=== PATIENT | male | born 1960 | race Caucasian/White ===

== ENCOUNTER 2016-12-02 18:45 | Inpatient (IN) | payer OTHER ==
[~2016-12-02] VITALS: Ht 175.3 cm; Wt 75.7 kg
[2016-12-02] MEDS ORDERED: IV NORMAL SALINE 1000ML BAG 1,000 ML IV SCH (18:59)
[2016-12-02] MEDS ORDERED: ONDANSETRON PF 4 MG/2 ML VIAL. IV ONE (19:00)
[2016-12-02] MEDS ORDERED: MORPHINE SULFATE 4 MG/ML DISP.SYRIN. IV/SQ PRN (19:00)
[2016-12-02] MEDS ORDERED: IBUP-1027 PO (19:01)
[2016-12-02] MEDS ORDERED: ROPI1TAB PO (19:01)
[2016-12-02] MEDS ORDERED: LISI30TA4 PO (19:01)
[2016-12-02] MEDS ORDERED: CARB1TAB5 PO ×2 (19:01)
[2016-12-02] MEDS ORDERED: NABU500T PO (19:01)
[2016-12-02] MEDS ORDERED: HYDR25TA9 PO (19:01)
[2016-12-02] MEDS ORDERED: AMAN100T PO (19:01)
[2016-12-02 19:11] LABS: BASO % 1 % (0-3); EOS % 4 % (0-3); HEMATOCRIT 34.7 % (39.0-53.0); HEMOGLOBIN 11.9 g/dL (13.0-17.5); LYMPH # 1.1 x10^3/uL (1.0-4.8); LYMPH % 16 % (24-48); MEAN CORPUSCULAR HEMOGLOBIN 28 pg (25-35); MEAN CORPUSCULAR HGB CONC 34 g/dL (31-37); MEAN CORPUSCULAR VOLUME 82 fL (79-100); MONO % 7 % (0-9); NEUT % 72 % (31-73); PLATELET COUNT 165 x10^3/uL (140-400); RED BLOOD COUNT 4.21 x10^6/uL (4.30-5.70); RED CELL DISTRIBUTION WIDTH 15.6 % (11.5-14.5); WHITE BLOOD COUNT 6.8 x10^3/uL (4.0-11.0)
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
[2016-12-02 19:25] LABS: CALCIUM 8.9 mg/dL (8.5-10.1); CREATININE 1.1 mg/dL (0.7-1.3)
[2016-12-02 19:30] LABS: ALBUMIN 4.3 g/dL (3.4-5.0); ALBUMIN/GLOBULIN RATIO 1.2 (1.0-1.7); TOTAL BILIRUBIN 0.6 mg/dL (0.2-1.0); TOTAL PROTEIN 7.9 g/dL (6.4-8.2)
[2016-12-02 20:40] VITALS: BP 136/82
[2016-12-02] MEDS ORDERED: ACETAMINOPHEN 325 MG TABLET. PO PRN (20:45)
[2016-12-02] MEDS ORDERED: MORPHINE SULFATE 4 MG/ML DISP.SYRIN. IV PRN (20:45)
[2016-12-02] MEDS ORDERED: ONDANSETRON PF 4 MG/2 ML VIAL. IV PRN ×2 (20:45→21:31)
[2016-12-02] MEDS: IV NORMAL SALINE 1000ML BAG 1,000 ML IV SCH (21:35)
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
[2016-12-02 22:11] LABS: INR 1.1 (0.8-1.1); PROTHROMBIN TIME PATIENT 13.8 SEC (11.7-14.0)
[2016-12-02] MEDS: AMANTADINE HCL 100 MG CAPSULE PO SCH (22:11)
[2016-12-02] MEDS: CARBIDOPA/LEVODOPA CR 25/100MG TABLET.SA. PO SCH (22:11)
[2016-12-02] MEDS: rOPINIRole 1 MG TABLET. PO SCH (22:17)
[2016-12-02 23:34] VITALS: BP 126/74
[2016-12-03 03:00] VITALS: BP 122/70
[2016-12-03 05:23] LABS: BASO % 1 % (0-3); EOS % 4 % (0-3); HEMATOCRIT 34.1 % (39.0-53.0); HEMOGLOBIN 11.8 g/dL (13.0-17.5); LYMPH # 1.3 x10^3/uL (1.0-4.8); LYMPH % 18 % (24-48); MEAN CORPUSCULAR HEMOGLOBIN 28 pg (25-35); MEAN CORPUSCULAR HGB CONC 35 g/dL (31-37); MEAN CORPUSCULAR VOLUME 82 fL (79-100); MONO % 9 % (0-9); NEUT % 69 % (31-73); PLATELET COUNT 151 x10^3/uL (140-400); RED BLOOD COUNT 4.14 x10^6/uL (4.30-5.70); RED CELL DISTRIBUTION WIDTH 15.7 % (11.5-14.5); WHITE BLOOD COUNT 7.2 x10^3/uL (4.0-11.0)
[2016-12-03 05:50] LABS: CALCIUM 8.6 mg/dL (8.5-10.1); CREATININE 1.1 mg/dL (0.7-1.3); POTASSIUM 4.6 mmol/L (3.5-5.1)
[2016-12-03] MEDS: IV NORMAL SALINE 1000ML BAG 1,000 ML IV SCH ×2 (06:36→16:38)
[2016-12-03 07:00] VITALS: BP 140/85
[2016-12-03] MEDS: AMANTADINE HCL 100 MG CAPSULE PO SCH ×2 (08:01→16:51)
[2016-12-03] MEDS: rOPINIRole 1 MG TABLET. PO SCH ×3 (08:03→16:50)
[2016-12-03] MEDS: CARBIDOPA/LEVODOPA CR 25/100MG TABLET.SA. PO SCH ×4 (08:03→20:55)
[2016-12-03] MEDS: LISINOPRIL 10 MG TABLET PO SCH (08:08)
[2016-12-03] MEDS: MELOXICAM 7.5 MG TABLET PO SCH (08:08)
[2016-12-03] MEDS: hydroCHLOROthiazide 25 MG TABLET PO SCH (08:08)
--- NOTE | 2016-12-03 08:14 | RAD ---
Indication fall. Pain. An AP view of the pelvis was obtained as well as targeted AP and lateral imaging to the left hip. There is a mildly impacted, traumatic, fracture of the left femoral neck. No additional bony finding is seen. IMPRESSION: Fractured left femoral neck.
[2016-12-03 11:00] VITALS: BP 120/76
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
[2016-12-03 15:00] VITALS: BP 120/65
--- NOTE | 2016-12-03 17:25 | PDOC ---
PROGRESS NOTES Chief Complaint Chief Complaint L hip fx ASSESSMENT AND PLAN: 1. L hip fx: plan for ORIF in AM 2. Pain control: adequate on current regimen 3. Parkinson's: cont home amantadine 4. RLS: on ropinirole 5. Prophylaxis: hold lovenox til post surg History of Present Illness History of Present Illness no pain at rest. no other c/o Vitals Vitals Vital Signs Date Time Temp Pulse Resp B/P (MAP) Pulse Ox O2 Delivery O2 Flow Rate FiO2 12/03/16 11:00 97.5 73 18 120/76 (91) 96 Room Air 97.5 Physical Exam General: Alert, Oriented X3, Cooperative, No acute distress Abdomen: Normal bowel sounds, Soft, No tenderness, No hepatosplenomegaly, No masses Skin: No rashes, No breakdown, No significant lesion Labs LABS Laboratory Tests Test 12/02/16 18:55 12/03/16 05:05 White Blood Count 6.8 x10^3/uL (4.0-11.0) 7.2 x10^3/uL (4.0-11.0) Red Blood Count 4.21 x10^6/uL (4.30-5.70) 4.14 x10^6/uL (4.30-5.70) Hemoglobin 11.9 g/dL (13.0-17.5) 11.8 g/dL (13.0-17.5) Hematocrit 34.7 % (39.0-53.0) 34.1 % (39.0-53.0) Mean Corpuscular Volume 82 fL (79-100) 82 fL (79-100) Mean Corpuscular Hemoglobin 28 pg (25-35) 28 pg (25-35) Mean Corpuscular Hemoglobin Concent 34 g/dL (31-37) 35 g/dL (31-37) Red Cell Distribution Width 15.6 % (11.5-14.5) 15.7 % (11.5-14.5) Platelet Count 165 x10^3/uL (140-400) 151 x10^3/uL (140-400) Neutrophils (%) (Auto) 72 % (31-73) 69 % (31-73) Lymphocytes (%) (Auto) 16 % (24-48) 18 % (24-48) Monocytes (%) (Auto) 7 % (0-9) 9 % (0-9) Eosinophils (%) (Auto) 4 % (0-3) 4 % (0-3) Basophils (%) (Auto) 1 % (0-3) 1 % (0-3) Neutrophils # (Auto) 4.9 x10^3uL (1.8-7.7) 4.9 x10^3uL (1.8-7.7) Lymphocytes # (Auto) 1.1 x10^3/uL (1.0-4.8) 1.3 x10^3/uL (1.0-4.8) Monocytes # (Auto) 0.5 x10^3/uL (0.0-1.1) 0.6 x10^3/uL (0.0-1.1) Eosinophils # (Auto) 0.3 x10^3/uL (0.0-0.7) 0.3 x10^3/uL (0.0-0.7) Basophils # (Auto) 0.0 x10^3/uL (0.0-0.2) 0.0 x10^3/uL (0.0-0.2) Prothrombin Time 13.8 SEC (11.7-14.0) Prothromb Time International Ratio 1.1 (0.8-1.1) Sodium Level 140 mmol/L (136-145) 138 mmol/L (136-145) Potassium Level 4.0 mmol/L (3.5-5.1) 4.6 mmol/L (3.5-5.1) Chloride Level 104 mmol/L (98-107) 105 mmol/L (98-107) Carbon Dioxide Level 27 mmol/L (21-32) 24 mmol/L (21-32) Anion Gap 9 (6-14) 9 (6-14) Blood Urea Nitrogen 26 mg/dL (8-26) 22 mg/dL (8-26) Creatinine 1.1 mg/dL (0.7-1.3) 1.1 mg/dL (0.7-1.3) Estimated GFR (Cockcroft-Gault) 69.0 69.0 BUN/Creatinine Ratio 24 (6-20) Glucose Level 165 mg/dL (70-99) 96 mg/dL (70-99) Calcium Level 8.9 mg/dL (8.5-10.1) 8.6 mg/dL (8.5-10.1) Total Bilirubin 0.6 mg/dL (0.2-1.0) Aspartate Amino Transf (AST/SGOT) 19 U/L (15-37) Alanine Aminotransferase (ALT/SGPT) 11 U/L (16-63) Alkaline Phosphatase 74 U/L (46-116) Total Protein 7.9 g/dL (6.4-8.2) Albumin 4.3 g/dL (3.4-5.0) 4.2 g/dL (3.4-5.0) Albumin/Globulin Ratio 1.2 (1.0-1.7) OTILIA CORLEY MD Dec 03, 2016 17:25
[2016-12-03] MEDS ORDERED: MORPHINE SULFATE 2 MG/ML DISP.SYRIN. IV PRN (17:30)
[2016-12-03 19:10] VITALS: BP 109/67
[2016-12-03 23:03] VITALS: BP 121/73
[2016-12-04] VITALS (9 sets, daily range): BP systolic 106–143; BP diastolic 60–94
[2016-12-04] MEDS ORDERED: IV RINGERS,LACTATED 1000ML 1,000 ML IV SCH (07:00)
[2016-12-04] MEDS ORDERED: ONDANSETRON PF 4 MG/2 ML VIAL. IV PRN ×2 (07:00→12:15)
[2016-12-04] MEDS ORDERED: fentaNYL PF VIAL 100 MCG/2 ML VIAL IV PRN ×3 (07:00→12:15)
[2016-12-04] MEDS ORDERED: HYDROmorphone 2 MG/ML VIAL IV PRN ×2 (07:00→12:15)
[2016-12-04] MEDS ORDERED: PROCHLORPERAZINE 10 MG/2 ML VIAL. IV PRN (07:00)
[2016-12-04] MEDS ORDERED: LIDOCAINE 1% 1 ML SYRINGE. ID PRN (07:00)
--- NOTE | 2016-12-04 07:58 | PDOC ---
ORTHO PROGRESS NOTES Subjective no acute events overnight. No nausea, vomiting, numbness, tingling, chest pain, shortness of breath, calf pain, or constipation. NPO for surgery today. Vitals Vital Signs Date Time Temp Pulse Resp B/P (MAP) Pulse Ox O2 Delivery O2 Flow Rate FiO2 12/04/16 07:00 94.5 88 18 142/94 (110) 97 Room Air 94.5 Labs Laboratory Tests Test 12/02/16 18:55 12/03/16 05:05 12/03/16 06:14 White Blood Count 6.8 x10^3/uL (4.0-11.0) 7.2 x10^3/uL (4.0-11.0) Red Blood Count 4.21 x10^6/uL (4.30-5.70) 4.14 x10^6/uL (4.30-5.70) Hemoglobin 11.9 g/dL (13.0-17.5) 11.8 g/dL (13.0-17.5) Hematocrit 34.7 % (39.0-53.0) 34.1 % (39.0-53.0) Mean Corpuscular Volume 82 fL (79-100) 82 fL (79-100) Mean Corpuscular Hemoglobin 28 pg (25-35) 28 pg (25-35) Mean Corpuscular Hemoglobin Concent 34 g/dL (31-37) 35 g/dL (31-37) Red Cell Distribution Width 15.6 % (11.5-14.5) 15.7 % (11.5-14.5) Platelet Count 165 x10^3/uL (140-400) 151 x10^3/uL (140-400) Neutrophils (%) (Auto) 72 % (31-73) 69 % (31-73) Lymphocytes (%) (Auto) 16 % (24-48) 18 % (24-48) Monocytes (%) (Auto) 7 % (0-9) 9 % (0-9) Eosinophils (%) (Auto) 4 % (0-3) 4 % (0-3) Basophils (%) (Auto) 1 % (0-3) 1 % (0-3) Neutrophils # (Auto) 4.9 x10^3uL (1.8-7.7) 4.9 x10^3uL (1.8-7.7) Lymphocytes # (Auto) 1.1 x10^3/uL (1.0-4.8) 1.3 x10^3/uL (1.0-4.8) Monocytes # (Auto) 0.5 x10^3/uL (0.0-1.1) 0.6 x10^3/uL (0.0-1.1) Eosinophils # (Auto) 0.3 x10^3/uL (0.0-0.7) 0.3 x10^3/uL (0.0-0.7) Basophils # (Auto) 0.0 x10^3/uL (0.0-0.2) 0.0 x10^3/uL (0.0-0.2) Prothrombin Time 13.8 SEC (11.7-14.0) Prothromb Time International Ratio 1.1 (0.8-1.1) Sodium Level 140 mmol/L (136-145) 138 mmol/L (136-145) Potassium Level 4.0 mmol/L (3.5-5.1) 4.6 mmol/L (3.5-5.1) Chloride Level 104 mmol/L (98-107) 105 mmol/L (98-107) Carbon Dioxide Level 27 mmol/L (21-32) 24 mmol/L (21-32) Anion Gap 9 (6-14) 9 (6-14) Blood Urea Nitrogen 26 mg/dL (8-26) 22 mg/dL (8-26) Creatinine 1.1 mg/dL (0.7-1.3) 1.1 mg/dL (0.7-1.3) Estimated GFR (Cockcroft-Gault) 69.0 69.0 BUN/Creatinine Ratio 24 (6-20) Glucose Level 165 mg/dL (70-99) 96 mg/dL (70-99) Calcium Level 8.9 mg/dL (8.5-10.1) 8.6 mg/dL (8.5-10.1) Total Bilirubin 0.6 mg/dL (0.2-1.0) Aspartate Amino Transf (AST/SGOT) 19 U/L (15-37) Alanine Aminotransferase (ALT/SGPT) 11 U/L (16-63) Alkaline Phosphatase 74 U/L (46-116) Total Protein 7.9 g/dL (6.4-8.2) Albumin 4.3 g/dL (3.4-5.0) 4.2 g/dL (3.4-5.0) Albumin/Globulin Ratio 1.2 (1.0-1.7) 25-Hydroxy Vitamin D Total 15.0 ng/mL (30.0-100.0) Nasal Screen MRSA (PCR) Negative (Negative) X-Rays Left hip and pelvis reveal a valgus impacted femoral neck fracture Notes LEFT LOWER EXTREMITY: no pain with log roll, leg lengths equal bilaterally, neurovascularly intact distally. Problems: (1) Fracture of femoral neck, left, closed Assessment and Plan plan for closed reduction percutaneous pinning versus open reduction internal fixation today of his left hip The patient is to be non-weight bearing after surgery for 3 months will need physical therapy/ot follow-up vitamin d level and supplement as needed. Problem Qualifiers (1) Fracture of femoral neck, left, closed: Encounter type: initial encounter Qualified Codes: S72.002A - Fracture of unspecified part of neck of left femur, initial encounter for closed fracture SUSAN OLIVARES MD Dec 04, 2016 07:58
[2016-12-04] MEDS: rOPINIRole 1 MG TABLET. PO SCH ×3 (08:00→18:26)
[2016-12-04] MEDS: AMANTADINE HCL 100 MG CAPSULE PO SCH ×2 (08:00→18:26)
[2016-12-04] MEDS: CARBIDOPA/LEVODOPA CR 25/100MG TABLET.SA. PO SCH ×4 (08:00→20:44)
[2016-12-04] MEDS ORDERED: LIDOCAINE 2% PF Vial for OR 5 ML VIAL. ONE (08:47)
[2016-12-04] MEDS ORDERED: PROPOFOL 20 ML IV ONE (08:47)
[2016-12-04] MEDS ORDERED: fentaNYL PF VIAL 100 MCG/2 ML VIAL ONE ×3 (08:47→12:10)
[2016-12-04] MEDS ORDERED: DEXAMETHASONE SOD PHOS 20 MG/5 ML VIAL. ONE (08:47)
[2016-12-04] MEDS ORDERED: ONDANSETRON PF 4 MG/2 ML VIAL. ONE (08:47)
[2016-12-04 09:17] LABS: BASO # 0.1 x10^3/uL (0.0-0.2); BASO % 1 % (0-3); EOS % 3 % (0-3); HEMATOCRIT 37.1 % (39.0-53.0); HEMOGLOBIN 13.2 g/dL (13.0-17.5); LYMPH # 1.1 x10^3/uL (1.0-4.8); LYMPH % 15 % (24-48); MEAN CORPUSCULAR HEMOGLOBIN 28 pg (25-35); MEAN CORPUSCULAR HGB CONC 36 g/dL (31-37); MEAN CORPUSCULAR VOLUME 80 fL (79-100); MONO % 7 % (0-9); NEUT % 74 % (31-73); PLATELET COUNT 182 x10^3/uL (140-400); RED BLOOD COUNT 4.65 x10^6/uL (4.30-5.70); RED CELL DISTRIBUTION WIDTH 15.6 % (11.5-14.5); WHITE BLOOD COUNT 7.4 x10^3/uL (4.0-11.0)
[2016-12-04 09:24] LABS: CALCIUM 9.1 mg/dL (8.5-10.1); POTASSIUM 4.5 mmol/L (3.5-5.1)
[2016-12-04] MEDS: IV RINGERS,LACTATED 1000ML 1,000 ML IV SCH ×2 (09:45→23:05)
[2016-12-04] MEDS ORDERED: ePHEDrine PF IN SALINE 50 MG/5 ML DISP.SYRIN IV ONE (10:31)
[2016-12-04] MEDS ORDERED: BUPIVACAINE-EPI 0.25%-1:200000 50 ML VIAL. ONE (11:13)
--- NOTE | 2016-12-04 11:28 | PDOC ---
BRIEF OPERATIVE NOTE Date: Dec 04, 2016 Pre-Op Diagnosis left valgus impacted femoral neck fracture Post-Op Diagnosis same Procedure Performed crpp left femoral neck fracture Surgeon Susan Olivares MD Anesthesia Type: General Blood Loss 25 Findings valgus impacted femoral neck fracture 4 stainless steel screws 6.5 mm x 80, 85, 100, 95 Complications none SUSAN OLIVARES MD Dec 04, 2016 11:28
[2016-12-04] MEDS: MORPHINE SULFATE 2 MG/ML DISP.SYRIN. IV PRN ×4 (11:52→12:40)
[2016-12-04] MEDS: fentaNYL PF VIAL 100 MCG/2 ML VIAL IV PRN ×4 (12:17→12:55)
--- NOTE | 2016-12-04 12:24 | RAD ---
Indication postop. An AP view of the pelvis was obtained as well as AP and lateral views of the left hip. Note is made of the preop study 2 days previously. 4 screws traverse the previously identified femoral neck fracture. No complication or unexpected finding is seen
--- NOTE | 2016-12-04 13:23 | PDOC ---
PROGRESS NOTES Chief Complaint Chief Complaint L hip fx ASSESSMENT AND PLAN: 1. L hip fx: plan for ORIF today 2. Pain control: adequate on current regimen 3. Parkinson's: cont home amantadine 4. RLS: on ropinirole 5. Prophylaxis: hold lovenox til post surg History of Present Illness History of Present Illness no pain at rest. no other c/o Vitals Vitals Vital Signs Date Time Temp Pulse Resp B/P (MAP) Pulse Ox O2 Delivery O2 Flow Rate FiO2 12/04/16 12:55 16 96 Nasal Cannula 2.0 12/04/16 12:42 88 148/86 12/04/16 12:27 99.0 99.0 Physical Exam General: Alert, Oriented X3, Cooperative, No acute distress Heart: Regular rate Lungs: Clear Abdomen: Normal bowel sounds, Soft, No tenderness, No hepatosplenomegaly, No masses Skin: No rashes, No breakdown, No significant lesion Labs LABS Laboratory Tests Test 12/04/16 09:05 White Blood Count 7.4 x10^3/uL (4.0-11.0) Red Blood Count 4.65 x10^6/uL (4.30-5.70) Hemoglobin 13.2 g/dL (13.0-17.5) Hematocrit 37.1 % (39.0-53.0) Mean Corpuscular Volume 80 fL (79-100) Mean Corpuscular Hemoglobin 28 pg (25-35) Mean Corpuscular Hemoglobin Concent 36 g/dL (31-37) Red Cell Distribution Width 15.6 % (11.5-14.5) Platelet Count 182 x10^3/uL (140-400) Neutrophils (%) (Auto) 74 % (31-73) Lymphocytes (%) (Auto) 15 % (24-48) Monocytes (%) (Auto) 7 % (0-9) Eosinophils (%) (Auto) 3 % (0-3) Basophils (%) (Auto) 1 % (0-3) Neutrophils # (Auto) 5.5 x10^3uL (1.8-7.7) Lymphocytes # (Auto) 1.1 x10^3/uL (1.0-4.8) Monocytes # (Auto) 0.5 x10^3/uL (0.0-1.1) Eosinophils # (Auto) 0.2 x10^3/uL (0.0-0.7) Basophils # (Auto) 0.1 x10^3/uL (0.0-0.2) Sodium Level 139 mmol/L (136-145) Potassium Level 4.5 mmol/L (3.5-5.1) Chloride Level 104 mmol/L (98-107) Carbon Dioxide Level 27 mmol/L (21-32) Anion Gap 8 (6-14) Blood Urea Nitrogen 19 mg/dL (8-26) Creatinine 1.0 mg/dL (0.7-1.3) Estimated GFR (Cockcroft-Gault) 77.0 Glucose Level 110 mg/dL (70-99) Calcium Level 9.1 mg/dL (8.5-10.1) OTILIA CORLEY MD Dec 04, 2016 13:23
[2016-12-04] MEDS: hydroCHLOROthiazide 25 MG TABLET PO SCH (14:14)
[2016-12-04] MEDS: MELOXICAM 7.5 MG TABLET PO SCH (14:14)
[2016-12-04] MEDS: LISINOPRIL 10 MG TABLET PO SCH (14:17)
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
[2016-12-05 03:00] VITALS: BP 143/86
[2016-12-05 05:05] LABS: BASO % 0 % (0-3); EOS % 2 % (0-3); HEMATOCRIT 32.4 % (39.0-53.0); HEMOGLOBIN 11.2 g/dL (13.0-17.5); LYMPH # 1.4 x10^3/uL (1.0-4.8); LYMPH % 16 % (24-48); MEAN CORPUSCULAR HEMOGLOBIN 28 pg (25-35); MEAN CORPUSCULAR HGB CONC 35 g/dL (31-37); MEAN CORPUSCULAR VOLUME 82 fL (79-100); MONO % 9 % (0-9); NEUT % 73 % (31-73); PLATELET COUNT 159 x10^3/uL (140-400); RED BLOOD COUNT 3.97 x10^6/uL (4.30-5.70); RED CELL DISTRIBUTION WIDTH 15.7 % (11.5-14.5)
[2016-12-05 05:26] LABS: CALCIUM 8.4 mg/dL (8.5-10.1)
[2016-12-05 07:00] VITALS: BP 134/92
[2016-12-05] MEDS: MELOXICAM 7.5 MG TABLET PO SCH (08:21)
[2016-12-05] MEDS: rOPINIRole 1 MG TABLET. PO SCH ×3 (08:22→18:24)
[2016-12-05] MEDS: AMANTADINE HCL 100 MG CAPSULE PO SCH ×2 (08:22→18:24)
[2016-12-05] MEDS: hydroCHLOROthiazide 25 MG TABLET PO SCH (08:22)
[2016-12-05] MEDS: oxyCODONE/APAP 5/325 1 TAB TABLET PO PRN (08:23)
[2016-12-05] MEDS: LISINOPRIL 10 MG TABLET PO SCH (08:23)
[2016-12-05] MEDS: CARBIDOPA/LEVODOPA CR 25/100MG TABLET.SA. PO SCH ×4 (08:58→21:39)
--- NOTE | 2016-12-05 11:42 | PDOC ---
PROGRESS NOTES Chief Complaint Chief Complaint L hip fx ASSESSMENT AND PLAN: 1. L hip fx: s/p L hip ORIF on 12/[address] Solano. activity as per Dr Solano 2. Pain control: great on current regimen. 3. Parkinson's: cont home amantadine 4. RLS: on ropinirole 5. Prophylaxis: start lovenox History of Present Illness History of Present Illness no pain at rest. no other c/o Vitals Vitals Vital Signs Date Time Temp Pulse Resp B/P (MAP) Pulse Ox O2 Delivery O2 Flow Rate FiO2 12/05/16 09:56 Room Air 12/05/16 08:23 85 134/92 12/05/16 07:00 97.9 16 98 97.9 12/04/16 12:55 2.0 Physical Exam General: Alert, Oriented X3, Cooperative, No acute distress Heart: Regular rate Lungs: Clear Abdomen: Normal bowel sounds, Soft, No tenderness, No hepatosplenomegaly, No masses Extremities: Other (incison covered) Skin: No rashes, No breakdown, No significant lesion Labs LABS Laboratory Tests Test 12/05/16 04:35 White Blood Count 9.0 x10^3/uL (4.0-11.0) Red Blood Count 3.97 x10^6/uL (4.30-5.70) Hemoglobin 11.2 g/dL (13.0-17.5) Hematocrit 32.4 % (39.0-53.0) Mean Corpuscular Volume 82 fL (79-100) Mean Corpuscular Hemoglobin 28 pg (25-35) Mean Corpuscular Hemoglobin Concent 35 g/dL (31-37) Red Cell Distribution Width 15.7 % (11.5-14.5) Platelet Count 159 x10^3/uL (140-400) Neutrophils (%) (Auto) 73 % (31-73) Lymphocytes (%) (Auto) 16 % (24-48) Monocytes (%) (Auto) 9 % (0-9) Eosinophils (%) (Auto) 2 % (0-3) Basophils (%) (Auto) 0 % (0-3) Neutrophils # (Auto) 6.6 x10^3uL (1.8-7.7) Lymphocytes # (Auto) 1.4 x10^3/uL (1.0-4.8) Monocytes # (Auto) 0.8 x10^3/uL (0.0-1.1) Eosinophils # (Auto) 0.1 x10^3/uL (0.0-0.7) Basophils # (Auto) 0.0 x10^3/uL (0.0-0.2) Sodium Level 141 mmol/L (136-145) Potassium Level 4.0 mmol/L (3.5-5.1) Chloride Level 104 mmol/L (98-107) Carbon Dioxide Level 24 mmol/L (21-32) Anion Gap 13 (6-14) Blood Urea Nitrogen 20 mg/dL (8-26) Creatinine 1.0 mg/dL (0.7-1.3) Estimated GFR (Cockcroft-Gault) 77.0 Glucose Level 100 mg/dL (70-99) Calcium Level 8.4 mg/dL (8.5-10.1) OTILIA CORLEY MD Dec 05, 2016 11:42
[2016-12-05 11:43] VITALS: BP_SYST 117; BP_SYST 184; BP_DIAS 60; BP_DIAS 78
[2016-12-05] MEDS: IV RINGERS,LACTATED 1000ML 1,000 ML IV SCH (12:25)
--- NOTE | 2016-12-05 15:11 | PDOC ---
PROGRESS NOTES Subjective Subjective Problems overnight: no acute issues. pain well controlled. Objective Vital Signs Vital Signs Date Time Temp Pulse Resp B/P (MAP) Pulse Ox O2 Delivery O2 Flow Rate FiO2 12/05/16 11:43 99.1 82 16 117/78 (91) 97 Room Air 99.1 12/04/16 12:55 2.0 Physical Exam LEFT LOWER EXTREMITY: incision clean, dry, and intact. neurovascularly intact distally. Labs Laboratory Tests Test 12/04/16 09:05 12/05/16 04:35 White Blood Count 7.4 x10^3/uL (4.0-11.0) 9.0 x10^3/uL (4.0-11.0) Red Blood Count 4.65 x10^6/uL (4.30-5.70) 3.97 x10^6/uL (4.30-5.70) Hemoglobin 13.2 g/dL (13.0-17.5) 11.2 g/dL (13.0-17.5) Hematocrit 37.1 % (39.0-53.0) 32.4 % (39.0-53.0) Mean Corpuscular Volume 80 fL (79-100) 82 fL (79-100) Mean Corpuscular Hemoglobin 28 pg (25-35) 28 pg (25-35) Mean Corpuscular Hemoglobin Concent 36 g/dL (31-37) 35 g/dL (31-37) Red Cell Distribution Width 15.6 % (11.5-14.5) 15.7 % (11.5-14.5) Platelet Count 182 x10^3/uL (140-400) 159 x10^3/uL (140-400) Neutrophils (%) (Auto) 74 % (31-73) 73 % (31-73) Lymphocytes (%) (Auto) 15 % (24-48) 16 % (24-48) Monocytes (%) (Auto) 7 % (0-9) 9 % (0-9) Eosinophils (%) (Auto) 3 % (0-3) 2 % (0-3) Basophils (%) (Auto) 1 % (0-3) 0 % (0-3) Neutrophils # (Auto) 5.5 x10^3uL (1.8-7.7) 6.6 x10^3uL (1.8-7.7) Lymphocytes # (Auto) 1.1 x10^3/uL (1.0-4.8) 1.4 x10^3/uL (1.0-4.8) Monocytes # (Auto) 0.5 x10^3/uL (0.0-1.1) 0.8 x10^3/uL (0.0-1.1) Eosinophils # (Auto) 0.2 x10^3/uL (0.0-0.7) 0.1 x10^3/uL (0.0-0.7) Basophils # (Auto) 0.1 x10^3/uL (0.0-0.2) 0.0 x10^3/uL (0.0-0.2) Sodium Level 139 mmol/L (136-145) 141 mmol/L (136-145) Potassium Level 4.5 mmol/L (3.5-5.1) 4.0 mmol/L (3.5-5.1) Chloride Level 104 mmol/L (98-107) 104 mmol/L (98-107) Carbon Dioxide Level 27 mmol/L (21-32) 24 mmol/L (21-32) Anion Gap 8 (6-14) 13 (6-14) Blood Urea Nitrogen 19 mg/dL (8-26) 20 mg/dL (8-26) Creatinine 1.0 mg/dL (0.7-1.3) 1.0 mg/dL (0.7-1.3) Estimated GFR (Cockcroft-Gault) 77.0 77.0 Glucose Level 110 mg/dL (70-99) 100 mg/dL (70-99) Calcium Level 9.1 mg/dL (8.5-10.1) 8.4 mg/dL (8.5-10.1) Laboratory Tests Test 12/05/16 04:35 White Blood Count 9.0 x10^3/uL (4.0-11.0) Red Blood Count 3.97 x10^6/uL (4.30-5.70) Hemoglobin 11.2 g/dL (13.0-17.5) Hematocrit 32.4 % (39.0-53.0) Mean Corpuscular Volume 82 fL (79-100) Mean Corpuscular Hemoglobin 28 pg (25-35) Mean Corpuscular Hemoglobin Concent 35 g/dL (31-37) Red Cell Distribution Width 15.7 % (11.5-14.5) Platelet Count 159 x10^3/uL (140-400) Neutrophils (%) (Auto) 73 % (31-73) Lymphocytes (%) (Auto) 16 % (24-48) Monocytes (%) (Auto) 9 % (0-9) Eosinophils (%) (Auto) 2 % (0-3) Basophils (%) (Auto) 0 % (0-3) Neutrophils # (Auto) 6.6 x10^3uL (1.8-7.7) Lymphocytes # (Auto) 1.4 x10^3/uL (1.0-4.8) Monocytes # (Auto) 0.8 x10^3/uL (0.0-1.1) Eosinophils # (Auto) 0.1 x10^3/uL (0.0-0.7) Basophils # (Auto) 0.0 x10^3/uL (0.0-0.2) Sodium Level 141 mmol/L (136-145) Potassium Level 4.0 mmol/L (3.5-5.1) Chloride Level 104 mmol/L (98-107) Carbon Dioxide Level 24 mmol/L (21-32) Anion Gap 13 (6-14) Blood Urea Nitrogen 20 mg/dL (8-26) Creatinine 1.0 mg/dL (0.7-1.3) Estimated GFR (Cockcroft-Gault) 77.0 Glucose Level 100 mg/dL (70-99) Calcium Level 8.4 mg/dL (8.5-10.1) Imaging xrays of the left lower extremity reveal screw placement through the valgus impacted femoral neck fracture. Assessment Assessment POD# 1, S/P closed reduction percutaneous pinning of the left femoral neck fracture Problems: Plan Plan of Care The patient is non-weight bearing on his left lower extremity His pain is well controlled He is ok for discharge once he is safe to ambulate with a walker non-weight bearing He should be on dvt prophylaxis until he is more ambulatory He can follow-up with me in 7-10 days for staple removal. SUSAN OLIVARES MD Dec 05, 2016 15:11
[2016-12-05 15:43] VITALS: BP 93/63
[2016-12-05 19:27] VITALS: BP 97/69
[2016-12-06] VITALS (7 sets, daily range): BP systolic 84–135; BP diastolic 50–85
[2016-12-06] MEDS: IV RINGERS,LACTATED 1000ML 1,000 ML IV SCH ×2 (01:45→15:05)
[2016-12-06 05:14] LABS: CALCIUM 8.7 mg/dL (8.5-10.1); POTASSIUM 4.2 mmol/L (3.5-5.1)
[2016-12-06 06:22] LABS: BASO # 0.1 x10^3/uL (0.0-0.2); BASO % 1 % (0-3); EOS % 4 % (0-3); HEMATOCRIT 32.9 % (39.0-53.0); HEMOGLOBIN 11.2 g/dL (13.0-17.5); LYMPH # 1.3 x10^3/uL (1.0-4.8); LYMPH % 19 % (24-48); MEAN CORPUSCULAR HEMOGLOBIN 28 pg (25-35); MEAN CORPUSCULAR HGB CONC 34 g/dL (31-37); MEAN CORPUSCULAR VOLUME 83 fL (79-100); MONO % 10 % (0-9); NEUT % 67 % (31-73); PLATELET COUNT 161 x10^3/uL (140-400); RED BLOOD COUNT 3.99 x10^6/uL (4.30-5.70); RED CELL DISTRIBUTION WIDTH 15.3 % (11.5-14.5); WHITE BLOOD COUNT 6.8 x10^3/uL (4.0-11.0)
[2016-12-06] MEDS: hydroCHLOROthiazide 25 MG TABLET PO SCH (08:17)
[2016-12-06] MEDS: AMANTADINE HCL 100 MG CAPSULE PO SCH ×2 (08:18→16:52)
[2016-12-06] MEDS: LISINOPRIL 10 MG TABLET PO SCH (08:18)
[2016-12-06] MEDS: MELOXICAM 7.5 MG TABLET PO SCH (08:18)
[2016-12-06] MEDS: CARBIDOPA/LEVODOPA CR 25/100MG TABLET.SA. PO SCH ×4 (08:18→20:38)
[2016-12-06] MEDS: rOPINIRole 1 MG TABLET. PO SCH ×3 (08:19→16:51)
--- NOTE | 2016-12-06 11:20 | PDOC ---
PROGRESS NOTES Chief Complaint Chief Complaint L hip fx ASSESSMENT AND PLAN: 1. L hip fx: s/p L hip ORIF on 12/[address] Solano. activity as per Dr Solano, 2. Pain control: great on current regimen. 3. Parkinson's: cont home amantadine 4. RLS: on ropinirole 5. Prophylaxis: start Lovenox 6. Disposition: communicated with facility, they don't have any PT/OT. possible DC on Thursday, History of Present Illness History of Present Illness no pain at rest. no other c/o Vitals Vitals Vital Signs Date Time Temp Pulse Resp B/P (MAP) Pulse Ox O2 Delivery O2 Flow Rate FiO2 12/06/16 08:18 76 118/64 12/06/16 08:00 Room Air 12/06/16 07:00 97.1 16 100 97.1 Physical Exam General: Alert, Oriented X3, Cooperative, No acute distress Heart: Regular rate, Normal S1, Normal S2 Lungs: Clear Abdomen: Normal bowel sounds, Soft, No tenderness, No hepatosplenomegaly, No masses Extremities: Other (incison covered) Skin: No rashes, No breakdown, No significant lesion Labs LABS Laboratory Tests Test 12/06/16 04:20 White Blood Count 6.8 x10^3/uL (4.0-11.0) Red Blood Count 3.99 x10^6/uL (4.30-5.70) Hemoglobin 11.2 g/dL (13.0-17.5) Hematocrit 32.9 % (39.0-53.0) Mean Corpuscular Volume 83 fL (79-100) Mean Corpuscular Hemoglobin 28 pg (25-35) Mean Corpuscular Hemoglobin Concent 34 g/dL (31-37) Red Cell Distribution Width 15.3 % (11.5-14.5) Platelet Count 161 x10^3/uL (140-400) Neutrophils (%) (Auto) 67 % (31-73) Lymphocytes (%) (Auto) 19 % (24-48) Monocytes (%) (Auto) 10 % (0-9) Eosinophils (%) (Auto) 4 % (0-3) Basophils (%) (Auto) 1 % (0-3) Neutrophils # (Auto) 4.5 x10^3uL (1.8-7.7) Lymphocytes # (Auto) 1.3 x10^3/uL (1.0-4.8) Monocytes # (Auto) 0.6 x10^3/uL (0.0-1.1) Eosinophils # (Auto) 0.3 x10^3/uL (0.0-0.7) Basophils # (Auto) 0.1 x10^3/uL (0.0-0.2) Sodium Level 140 mmol/L (136-145) Potassium Level 4.2 mmol/L (3.5-5.1) Chloride Level 104 mmol/L (98-107) Carbon Dioxide Level 28 mmol/L (21-32) Anion Gap 8 (6-14) Blood Urea Nitrogen 21 mg/dL (8-26) Creatinine 1.0 mg/dL (0.7-1.3) Estimated GFR (Cockcroft-Gault) 77.0 Glucose Level 100 mg/dL (70-99) Calcium Level 8.7 mg/dL (8.5-10.1) Assessment and Plan Assessmemt and Plan Problems Medical Problems: (1) Fracture of femoral neck, left, closed Status: Acute Problems: Comment Review of Relevant I have reviewed the following items wendy (where applicable) has been applied. Labs Laboratory Tests Test 12/05/16 04:35 12/06/16 04:20 White Blood Count 9.0 x10^3/uL (4.0-11.0) 6.8 x10^3/uL (4.0-11.0) Red Blood Count 3.97 x10^6/uL (4.30-5.70) 3.99 x10^6/uL (4.30-5.70) Hemoglobin 11.2 g/dL (13.0-17.5) 11.2 g/dL (13.0-17.5) Hematocrit 32.4 % (39.0-53.0) 32.9 % (39.0-53.0) Mean Corpuscular Volume 82 fL (79-100) 83 fL (79-100) Mean Corpuscular Hemoglobin 28 pg (25-35) 28 pg (25-35) Mean Corpuscular Hemoglobin Concent 35 g/dL (31-37) 34 g/dL (31-37) Red Cell Distribution Width 15.7 % (11.5-14.5) 15.3 % (11.5-14.5) Platelet Count 159 x10^3/uL (140-400) 161 x10^3/uL (140-400) Neutrophils (%) (Auto) 73 % (31-73) 67 % (31-73) Lymphocytes (%) (Auto) 16 % (24-48) 19 % (24-48) Monocytes (%) (Auto) 9 % (0-9) 10 % (0-9) Eosinophils (%) (Auto) 2 % (0-3) 4 % (0-3) Basophils (%) (Auto) 0 % (0-3) 1 % (0-3) Neutrophils # (Auto) 6.6 x10^3uL (1.8-7.7) 4.5 x10^3uL (1.8-7.7) Lymphocytes # (Auto) 1.4 x10^3/uL (1.0-4.8) 1.3 x10^3/uL (1.0-4.8) Monocytes # (Auto) 0.8 x10^3/uL (0.0-1.1) 0.6 x10^3/uL (0.0-1.1) Eosinophils # (Auto) 0.1 x10^3/uL (0.0-0.7) 0.3 x10^3/uL (0.0-0.7) Basophils # (Auto) 0.0 x10^3/uL (0.0-0.2) 0.1 x10^3/uL (0.0-0.2) Sodium Level 141 mmol/L (136-145) 140 mmol/L (136-145) Potassium Level 4.0 mmol/L (3.5-5.1) 4.2 mmol/L (3.5-5.1) Chloride Level 104 mmol/L (98-107) 104 mmol/L (98-107) Carbon Dioxide Level 24 mmol/L (21-32) 28 mmol/L (21-32) Anion Gap 13 (6-14) 8 (6-14) Blood Urea Nitrogen 20 mg/dL (8-26) 21 mg/dL (8-26) Creatinine 1.0 mg/dL (0.7-1.3) 1.0 mg/dL (0.7-1.3) Estimated GFR (Cockcroft-Gault) 77.0 77.0 Glucose Level 100 mg/dL (70-99) 100 mg/dL (70-99) Calcium Level 8.4 mg/dL (8.5-10.1) 8.7 mg/dL (8.5-10.1) Laboratory Tests Test 12/06/16 04:20 White Blood Count 6.8 x10^3/uL (4.0-11.0) Red Blood Count 3.99 x10^6/uL (4.30-5.70) Hemoglobin 11.2 g/dL (13.0-17.5) Hematocrit 32.9 % (39.0-53.0) Mean Corpuscular Volume 83 fL (79-100) Mean Corpuscular Hemoglobin 28 pg (25-35) Mean Corpuscular Hemoglobin Concent 34 g/dL (31-37) Red Cell Distribution Width 15.3 % (11.5-14.5) Platelet Count 161 x10^3/uL (140-400) Neutrophils (%) (Auto) 67 % (31-73) Lymphocytes (%) (Auto) 19 % (24-48) Monocytes (%) (Auto) 10 % (0-9) Eosinophils (%) (Auto) 4 % (0-3) Basophils (%) (Auto) 1 % (0-3) Neutrophils # (Auto) 4.5 x10^3uL (1.8-7.7) Lymphocytes # (Auto) 1.3 x10^3/uL (1.0-4.8) Monocytes # (Auto) 0.6 x10^3/uL (0.0-1.1) Eosinophils # (Auto) 0.3 x10^3/uL (0.0-0.7) Basophils # (Auto) 0.1 x10^3/uL (0.0-0.2) Sodium Level 140 mmol/L (136-145) Potassium Level 4.2 mmol/L (3.5-5.1) Chloride Level 104 mmol/L (98-107) Carbon Dioxide Level 28 mmol/L (21-32) Anion Gap 8 (6-14) Blood Urea Nitrogen 21 mg/dL (8-26) Creatinine 1.0 mg/dL (0.7-1.3) Estimated GFR (Cockcroft-Gault) 77.0 Glucose Level 100 mg/dL (70-99) Calcium Level 8.7 mg/dL (8.5-10.1) Medications Current Medications Morphine Sulfate 4 mg PRN Q15MIN PRN IV/SQ PAIN GREATER THAN 3/10 Last administered on 12/02/16 19:15; Start 12/02/16 at 19:00; Stop 12/03/16 at 15:13; Status DC Sodium Chloride 1,000 ml @ 1,000 mls/hr Q1H IV Last administered on 12/02/16 18:59; Start 12/02/16 at 18:59; Stop 12/02/16 at 19:58; Status DC Ondansetron HCl (Zofran) 4 mg 1X ONCE IV Last administered on 12/02/16 19:14; Start 12/02/16 at 19:00; Stop 12/02/16 at 19:06; Status DC Ondansetron HCl (Zofran) 4 mg PRN Q8HRS PRN IV NAUSEA/VOMITING; Start 12/02/16 at 20:45; Stop 12/02/16 at 21:32; Status DC Morphine Sulfate 4 mg PRN Q2HR PRN IV PAIN; Start 12/02/16 at 20:45; Stop at 17:23; Status DC Sodium Chloride 1,000 ml @ 100 mls/hr Q10H IV Last administered on 12/02/16 21 :35; Start 12/02/16 at 20:38; Stop 12/03/16 at 20:37; Status DC Acetaminophen (Tylenol) 650 mg PRN Q4HRS PRN PO FEVER; Start 12/02/16 at 20:45; Stop 12/03/16 at 20:44; Status DC Ondansetron HCl (Zofran) 4 mg PRN Q6HRS PRN IV NAUSEA/VOMITING; Start 12/02/16 at 21:31; Stop 12/03/16 at 21:30; Status DC Hydrochlorothiazide (Hydrodiuril) 25 mg DAILY PO Last administered on 08:17; Start 12/03/16 at 09:00 Ropinirole HCl (Requip) 5 mg TID PO Last administered on 12/03/16 12:07; Start 12/02/16 at 22:15; Stop 12/03/16 at 14:34; Status DC Amantadine HCl (Symmetrel) 100 mg BID PO Last administered on 12/03/16 08:01; Start 12/02/16 at 22:00; Stop 12/03/16 at 14:32; Status DC Carbidopa/Levodopa (Sinemet Cr) 2 tab.sa QHS PO Last administered on 12/05/16 21:39; Start 12/02/16 at 22:00 Carbidopa/Levodopa (Sinemet Cr) 4 tab.sa TIDWMEALS PO Last administered on 12/06 08:18; Start 12/03/16 at 08:00 Lisinopril (Prinivil) 30 mg DAILY PO Last administered on 12/06/16 08:18; Start 12/03/16 at 09:00 Meloxicam (Mobic) 7.5 mg DAILY PO Last administered on 12/06/16 08:18; Start 12/03/16 at 09:00 Ondansetron HCl (Zofran) 4 mg PRN Q6HRS PRN IV NAUSEA/VOMITING; Start 12/04/16 at 07:00; Stop 12/04/16 at 07:00; Status DC Fentanyl Citrate (Fentanyl 2ml Vial) 25 mcg PRN Q5MIN PRN IV MILD PAIN; Start 12/04/16 at 07:00; Stop 12/04/16 at 07:00; Status DC Fentanyl Citrate (Fentanyl 2ml Vial) 50 mcg PRN Q5MIN PRN IV MODERATE PAIN; Start 12/04/16 at 07:00; Stop 12/04/16 at 07:00; Status DC Morphine Sulfate 1 mg PRN Q10MIN PRN IV SEVERE PAIN Last administered on 12:40; Start 12/04/16 at 07:00; Stop 12/04/16 at 23:00; Status DC Ringer's Solution 1,000 ml @ 0 mls/hr Q0M IV ; Start 12/04/16 at 07:00; Stop 12/04/16 at 18:59; Status DC Lidocaine HCl 2 ml PRN 1X PRN ID PRIOR TO IV START; Start 12/04/16 at 07:00; Stop 12/04/16 at 18:00; Status DC Hydromorphone HCl (Dilaudid) 0.5 mg PRN Q10MIN PRN IV SEV PAIN, Second choice; Start 12/04/16 at 07:00; Stop 12/04/16 at 07:00; Status DC Prochlorperazine Edisylate (Compazine) 5 mg PACU PRN PRN IV NAUSEA, MRX1; Start 12/04/16 at 07:00; Stop 12/04/16 at 23:00; Status DC Amantadine HCl (Symmetrel) 100 mg BID@0800,1700 PO Last administered on 08:18; Start 12/03/16 at 17:00 Ropinirole HCl (Requip) 5 mg TID@0800,1200,1700 PO Last administered on 08:19; Start 12/03/16 at 17:00 Oxycodone/ Acetaminophen (Percocet 5/325) 1 tab PRN Q4HRS PRN PO PAIN Last administered on 12/05/16 08:23; Start 12/03/16 at 17:30 Morphine Sulfate 2 mg PRN Q2HR PRN IV severe pain; Start 12/03/16 at 17:30 Dexamethasone Sodium Phosphate (Decadron) 20 mg STK-MED ONCE .ROUTE ; Start 12/04 at 08:47; Stop 12/04/16 at 08:48; Status DC Ondansetron HCl (Zofran) 4 mg STK-MED ONCE .ROUTE ; Start 12/04/16 at 08:47; Stop 12/04/16 at 08:48; Status DC Propofol 20 ml @ As Directed STK-MED ONCE IV ; Start 12/04/16 at 08:47; Stop 12/04 at 08:48; Status DC Lidocaine HCl (Lidocaine Pf 2% Vial) 5 ml STK-MED ONCE .ROUTE ; Start 12/04/16 at 08:47; Stop 12/04/16 at 08:48; Status DC Fentanyl Citrate (Fentanyl 2ml Vial) 100 mcg STK-MED ONCE .ROUTE ; Start at 08:47; Stop 12/04/16 at 08:48; Status DC Ringer's Solution 1,000 ml @ 75 mls/hr [id number] IV ; Start 12/04/16 at 09:45 Ephedrine Sulfate 50 mg STK-MED ONCE IV ; Start 12/04/16 at 10:31; Stop 12/04/16 at 10:32; Status DC Fentanyl Citrate (Fentanyl 2ml Vial) 100 mcg STK-MED ONCE .ROUTE ; Start at 10:40; Stop 12/04/16 at 10:41; Status DC Bupivacaine HCl/ Epinephrine Bitart (Marcaine-Epi 0.25%-[id number]) 50 ml STK-MED ONCE .ROUTE Last administered on 12/04/16 10:36; Start 12/04/16 at 11:13; Stop 12/04/16 at 11:14; Status DC Fentanyl Citrate (Fentanyl 2ml Vial) 100 mcg STK-MED ONCE .ROUTE ; Start at 12:10; Stop 12/04/16 at 12:11; Status DC Ondansetron HCl (Zofran) 4 mg PRN Q6HRS PRN IV NAUSEA/VOMITING; Start 12/04/16 at 12:15; Stop 12/04/16 at 18:00; Status DC Fentanyl Citrate (Fentanyl 2ml Vial) 25 mcg PRN Q5MIN PRN IV MILD PAIN; Start 12/04/16 at 12:15; Stop 12/04/16 at 18:00; Status DC Fentanyl Citrate (Fentanyl 2ml Vial) 50 mcg PRN Q5MIN PRN IV MODERATE PAIN Last administered on 12/04/16 12:55; Start 12/04/16 at 12:15; Stop 12/04/16 at 18: 00; Status DC Hydromorphone HCl (Dilaudid) 0.5 mg PRN Q10MIN PRN IV SEV PAIN, Second choice; Start 12/04/16 at 12:15; Stop 12/04/16 at 18:00; Status DC Active Scripts Active Reported Hydrochlorothiazide Tablet (Hydrochlorothiazide) 25 Mg Tablet 1 Tab PO DAILY Ibuprofen 400 Mg Tablet 200 Mg PO BID PRN Sinemet Cr 50-200 Tablet (Carbidopa/Levodopa) 1 Each Tablet.er 1 Tab PO QHS Sinemet Cr 50-200 Tablet (Carbidopa/Levodopa) 1 Each Tablet.er 2 Tab PO TID Lisinopril 30 Mg Tablet 1 Tab PO DAILY Nabumetone 500 Mg Tablet 1 Tab PO BID Amantadine (Amantadine Hcl) 100 Mg Tablet 1 Tab PO BID Requip (Ropinirole Hcl) 1 Mg Tablet 5 Mg PO TID Vitals/I & O Vital Sign - Last 24 Hours 12/05/16 12/05/16 12/05/16 12/05/16 11:43 15:43 19:27 20:00 Temp 99.1 98.1 98.6 99.1 98.1 98.6 Pulse 82 78 81 Resp 16 16 20 B/P (MAP) 117/78 (91) 93/63 (73) 97/69 (78) Pulse Ox 97 93 98 O2 Delivery Room Air Room Air Room Air Room Air 12/06/16 12/06/16 12/06/16 12/06/16 00:42 03:00 07:00 08:00 Temp 98.5 98.6 97.1 98.5 98.6 97.1 Pulse 74 76 86 Resp 16 16 16 B/P (MAP) 111/69 (83) 118/64 (82) 135/85 (102) Pulse Ox 97 96 100 O2 Delivery Room Air Room Air Room Air Room Air 12/06/16 08:18 Pulse 76 B/P (MAP) 118/64 Intake and Output 12/05/16 12/05/16 12/06/16 15:00 23:00 07:00 Output Total 400 ml Balance -400 ml KATI BOWEN MD Dec 06, 2016 11:20
[2016-12-06] MEDS ORDERED: ENOXAPARIN 40 MG/0.4 ML SYRINGE. SQ SCH (16:00)
[2016-12-07 03:00] VITALS: BP 111/64
[2016-12-07] MEDS: IV RINGERS,LACTATED 1000ML 1,000 ML IV SCH (04:25)
[2016-12-07 07:52] VITALS: BP 120/74
[2016-12-07] MEDS: CARBIDOPA/LEVODOPA CR 25/100MG TABLET.SA. PO SCH (07:54)
[2016-12-07] MEDS: rOPINIRole 1 MG TABLET. PO SCH (07:55)
[2016-12-07] MEDS: oxyCODONE/APAP 5/325 1 TAB TABLET PO PRN (07:55)
[2016-12-07] MEDS: MELOXICAM 7.5 MG TABLET PO SCH (07:55)
[2016-12-07] MEDS: AMANTADINE HCL 100 MG CAPSULE PO SCH (07:55)
[2016-12-07] MEDS: hydroCHLOROthiazide 25 MG TABLET PO SCH (07:55)
[2016-12-07] MEDS: LISINOPRIL 10 MG TABLET PO SCH (07:57)
--- NOTE | 2016-12-07 08:33 | PDOC ---
ORTHO PROGRESS NOTES Subjective no acute issues overnight. pain well controlled. able to ambulate around the floor with physical therapy on the walker, nonweight bearing. Post-op Day: 3 Procedure closed reduction percutaneous pinning left femoral neck fracture Vitals Vital Signs Date Time Temp Pulse Resp B/P (MAP) Pulse Ox O2 Delivery O2 Flow Rate FiO2 12/07/16 08:00 Room Air 12/07/16 07:55 16 97 2.0 12/07/16 07:52 98.8 86 120/74 (89) 98.8 Labs Laboratory Tests Test 12/06/16 04:20 White Blood Count 6.8 x10^3/uL (4.0-11.0) Red Blood Count 3.99 x10^6/uL (4.30-5.70) Hemoglobin 11.2 g/dL (13.0-17.5) Hematocrit 32.9 % (39.0-53.0) Mean Corpuscular Volume 83 fL (79-100) Mean Corpuscular Hemoglobin 28 pg (25-35) Mean Corpuscular Hemoglobin Concent 34 g/dL (31-37) Red Cell Distribution Width 15.3 % (11.5-14.5) Platelet Count 161 x10^3/uL (140-400) Neutrophils (%) (Auto) 67 % (31-73) Lymphocytes (%) (Auto) 19 % (24-48) Monocytes (%) (Auto) 10 % (0-9) Eosinophils (%) (Auto) 4 % (0-3) Basophils (%) (Auto) 1 % (0-3) Neutrophils # (Auto) 4.5 x10^3uL (1.8-7.7) Lymphocytes # (Auto) 1.3 x10^3/uL (1.0-4.8) Monocytes # (Auto) 0.6 x10^3/uL (0.0-1.1) Eosinophils # (Auto) 0.3 x10^3/uL (0.0-0.7) Basophils # (Auto) 0.1 x10^3/uL (0.0-0.2) Sodium Level 140 mmol/L (136-145) Potassium Level 4.2 mmol/L (3.5-5.1) Chloride Level 104 mmol/L (98-107) Carbon Dioxide Level 28 mmol/L (21-32) Anion Gap 8 (6-14) Blood Urea Nitrogen 21 mg/dL (8-26) Creatinine 1.0 mg/dL (0.7-1.3) Estimated GFR (Cockcroft-Gault) 77.0 Glucose Level 100 mg/dL (70-99) Calcium Level 8.7 mg/dL (8.5-10.1) Notes LEFT LOWER EXTREMITY incisions clean, dry, and intact. with jamar in place, skin glue. neurovascularly intact distally. Problems: (1) Fracture of femoral neck, left, closed Assessment and Plan The patient is pod 3 status post closed reduction percutaneous pinning left femoral neck fracture, currently doing well recc vitamins, vitamin D, and iron supplementation nonweight bearing on left lower extremity x 3 months. needs to be able to use a walker can follow-up in my office for staple removal. he was given the paperwork and dates. do not shower please until jamar are removed keep incision clean, dry, and intact. Problem Qualifiers (1) Fracture of femoral neck, left, closed: Encounter type: initial encounter Qualified Codes: S72.002A - Fracture of unspecified part of neck of left femur, initial encounter for closed fracture SUSAN OLIVARES MD Dec 07, 2016 08:33
--- NOTE | 2016-12-11 22:34 | DS ---
DATE OF DISCHARGE: 12/07/2016 DISCHARGE DIAGNOSES: 1. Left hip fracture status post left hip open reduction internal fixation on 12/04/2016, by Dr. Solano. 2. Pain due to above surgery, resolving. 3. Hypertension, chronic, stable on amantadine. 4. Restless leg syndrome on ropinirole, stable. BRIEF HOSPITAL COURSE: This is a 55-year-old male patient admitted to the hospital for left hip fracture. He had ORIF by Dr. Solano. Post-surgery, the patient's pain and rehabilitation has been stable and the patient is clinically improving. On 12/07/2016, he deemed stable enough to go to rehab for continued care ____ physical therapy and occupational therapy. The patient has been scheduled to follow up with Dr. Solano in 2-4 weeks. DISCHARGE PHYSICAL EXAMINATION: GENERAL: Alert, oriented x 3. HEART: S1, S2 noted. CHEST: Anterior chest clear. ABDOMEN: Soft, nontender, no organomegaly. EXTREMITIES: No edema. DISCHARGE DISPOSITION: Home. DISCHARGE CONDITION: Stable. DISCHARGE FOLLOWUP: With Dr. Solano. MEDICATIONS: Reviewed and reconciled. Please see my discharge instructions. Total time spent 31 minutes. KATI BOWEN MD DR: ENRIQUE/itzel JOB#: [id number] / [id number]
== END 2016-12-07 10:56 | DRG 482 ==
LOC: ER 18:45 → EEVIPCON 18:45 → 4 NORTH 19:14
PROVIDERS: ADMIT Internal Medicine; ATTEND Internal Medicine
PROC: 0QS734Z Reposition Left Upper Femur with Internal Fixation Device, Percutaneous Approach (ICD-10-PCS; principal; 2016-12-04 11:15)
DX: S72.002A Fracture of unspecified part of neck of left femur, initial encounter for closed fracture (principal); G20 Parkinson's disease; M19.90 Unspecified osteoarthritis, unspecified site; D63.8 Anemia in other chronic diseases classified elsewhere; Y93.72 Activity, wrestling; Y92.89 Other specified places as the place of occurrence of the external cause; Y99.8 Other external cause status; G25.81 Restless legs syndrome
CPT/HCPCS: 36415; 73502; 76000; 80048; 80053; 82040; 82306; 85027; 85610; 87641; 96361; 96374; 96375; A4215; C1713; C1887; J1100; J1650; J2270; J2405; J2704; J3010; J7030; 99285-25